=== PATIENT | male | born 1980 | race Caucasian/White ===

== ENCOUNTER 2025-08-09 07:39 | Emergency (ER) | payer OTHER, SELFPAY ==
[2025-08-09 07:42] VITALS: BP 119/95
[2025-08-09 07:52] VITALS: BP 136/91
[2025-08-09 08:00] VITALS: BP 134/95
--- NOTE | 2025-08-09 08:07 | ED.GENMED ---
History of Present Illness
General
Chief Complaint: Breathing Problem
Source: patient
Exam Limitations: none
Time Seen by Provider: 08/09/25 07:53
History of Present Illness
History of Present Illness:
44yoM with no significant past medical history presenting for evaluation of shortness of breath. He reports dyspnea primarily at nighttime/laying flat and with activity for the past month. He woke up in the middle of the night last night due to
his symptoms. told him 2 days ago that it sounded like his lungs were 'drowning in fluid.' He endorses a dry cough. He saw his PCP 3 weeks ago who started him on prednisone and amoxicillin which he finished without any improvement. No
fevers, leg swelling, calf pain, recent travel. No tobacco use.
Past History
Past History
ED Past Medical History: None
ED Past Surgical History: None
Social History
Tobacco: Smoker
Alcohol: None
Drug: None
Personal:
Living: with family
Employment: Employed
Phy Exam
General Physical Exam
General Presentation: well appearing and no apparent distress
General Skin: warm and dry
General Habitus: normal
General Mental: alert
ENT Exam
ENT Exam: normocephalic
Cardiovascular Exam
Cardiovascular Exam: regular rate/rhythm, no edema, no murmur and normal peripheral pulses (2+ DP pulses bilaterally)
Pulmonary Exam
Pulmonary Exam: no respiratory distress, no rales, no crackles, no rhonchi and other (Inspiratory wheeze noted in R lung base. No rales or rhonchi. Speaking in full sentences without difficulty. )
Neurological Exam
Neurological Exam: alert
Gurpreet Coma Scale
Eye Opening: Spontaneous
Verbal Response: Oriented
Motor Response: Obeys Commands
GCS Total Score: 15
Skin Exam
Skin Exam: normal color and warm/dry
Psychiatric Exam
Psychiatric Exam: normal mood/affect
Scores
Heart Failure Risk
Heart Failure Risk Score: Not Applicable
Course
Orders/Labs/Results
Orders:
Orders
08/09/25 08:00
Cardiac Monitoring- Treatment ONCE
08/09/25 08:01
Electrocardiogram (*1) Urgent
Reason for Study: Shortness of Breath
EKG- Treatment ONCE
Ipratropium/Albuterol Sulfate [Duoneb] 3 ml INH R NOW STA
CR Chest - 2 Views Urgent
Comment:
Reason For Exam: SOB
08/09/25 08:31
Complete Blood Count/With Diff Urgent
Comprehensive Metabolic Panel Urgent
D-Dimer Urgent
NT-proBNP Urgent
Troponin I Urgent
Abnormal Lab Results
08/09/25
08:31
WBC 13.0 H 10^3/uL
(4.8-10.8)
MCH 31.5 H pg
(27.0-31.0)
Abs Immat Gran (auto) 0.1 H 10^3/uL
(0-0.05)
Absolute Neuts (auto) 10.2 H 10^3/uL
(1.4-6.5)
Absolute Monos (auto) 0.9 H 10^3/uL
(0.1-0.6)
Neutrophils % 78.7 H %
(42.2-75.2)
Lymphocytes % 11.7 L %
(20.5-51.1)
Glucose 102 H mg/dl
(70-99)
08/09/25 08:31
08/09/25 08:31
Vital Signs
Initial and Last Documented VS:
Initial Vital Signs
Temp Pulse Resp BP Pulse Ox
97.7 F 104 18 119/95 97
08/09/25 07:42 08/09/25 07:42 08/09/25 07:42 08/09/25 07:42 08/09/25 07:42
Last Documented Vital Signs
Temp Pulse Resp BP Pulse Ox
97.7 F 84 18 114/86 98
08/09/25 07:42 08/09/25 09:49 08/09/25 09:49 08/09/25 09:49 08/09/25 09:49
MDM/Problems Addressed
Differential Diagnosis Includes:
44yoM here with SOB x 1 month. Worse at nighttime and with activity. Finished course of prednisone/amoxil without improvement. HR 104 in triage. Remainder of vitals are stable. Patient is well appearing in no distress. Scant wheezes noted on lung
exam. No peripheral edema or rales. Differential diagnosis includes but is not limited to: bronchitis, bronchospasm, FIONA, symptomatic anemia, pneumonia, CHF, consider PE
Initial ED plan: Check cardiac labs, D-dimer, EKG, and CXR. Trial DuoNeb and reassess.
*Pulse Oximetry
SaO2: 97
Oxygen Mode of Delivery: Room air
Patient hypoxic: no
*EKG
Interpreted by ED Provider?: Yes
EKG Intrepretation Date: 08/09/25
Heart Rate: 81
Rate: normal
Rhythm: sinus
[place]: normal axis
Interval: normal interval
QRS Pattern: normal QRS
Ischemia: no ischemia
*Critical Care Note
Total Time (30-74mins, 75-104mins- exclusive of procedures): Not Applicable
Update Note
Update Note:
Labs reveal a white count of 13 which is nonspecific. Remainder of labs are unremarkable. Both troponin and BNP are normal. D-dimer normal making PE very unlikely. Chest x-ray clear without infiltrates, pulmonary edema, or cardiomegaly. Lung
sounds clear on reassessment. No episodes of hypoxia throughout ED stay. Unclear etiology of symptoms. He did have wheezing on arrival so will provide a prescription for an albuterol inhaler. He just finished a course of prednisone less than a
week ago so will defer further steroids. Discussed need for outpatient follow-up with his PCP as well as further outpatient workup including possible sleep study or stress test. Patient in agreement with plan and he was discharged in stable
condition.
ED Attending Note
-
Portions of this chart may have been created with voice recognition software.� Occasional wrong word or��sound alike� substitutions may have occurred due to the inherent limitations of voice recognition software.
Discharge Plan
Departure
Patient Disposition: Home (Routine Discharge)
Date of Disposition: 08/09/25
Time of Disposition: :23
Patient with high blood pressure during this ER visit?: No
Discharge Problem:
Shortness of breath
Instructions: Shortness of Breath (Dyspnea) (DC)
Prescriptions:
New
albuterol sulfate [Ventolin HFA] 90 mcg/actuation HFA aerosol inhaler
2 puff inhalation Q6H PRN (Reason: shortness of breath or wheezing) Qty: 8.5 0RF
Referrals:
Damian Miller DO [Family Provider, Family Practice]
Activity Restrictions/Additional Instructions:
Use inhaler as needed for wheezing/shortness of breath.
Please call your family doctor today to schedule a follow-up appointment next week. Return to the ER with any new or worsening symptoms.
Interventions
Interventions:
*Risk Screen - Suicide Last Done: 08/09/25 07:42
*General Assessment Last Done: 08/09/25 07:42
*Neglect/Abuse Screening Last Done: 08/09/25 07:42
*ED- Fall Risk Assessment Last Done: 08/09/25 07:42
*ED COVID-19 Vaccine History Last Done: 08/09/25 07:42
*ED Influenza Vaccine History Last Done: 08/09/25 07:42
*Nursing Disposition Last Done: 08/09/25 09:49
ED- Cardiac Assessment Last Done: 08/09/25 08:20
ED- Pulmonary Assessment Last Done: 08/09/25 08:20
Discharge Date and Time
Discharge Date/Time: 08/09/25 09:45
Print Language: [place]
[2025-08-09 08:18] VITALS: BP 123/81
[2025-08-09 08:20] VITALS: BMI 22.0
--- NOTE | 2025-08-09 08:25 | EDRN ---
Received patient on stretcher with c/o TY and SOB when he lays down. Denies c/o chest pain. Patient stated that he was seen by his PCP and was being treated for respiratory infection.
[2025-08-09] MEDS: DUONEB 3 ML INH (08:35)
[2025-08-09 08:43] LABS: Hematocrit 47.7 % (39.0-52.0); Hemoglobin 16.1 g/dL (13.0-18.0); Mean Corp Hgb Conc. 33.8 g/dL (33.0-37.0); Mean Corpuscular Volume 93.3 fL (80.0-94.0); Nucleated Red Blood Cells % 0 % (-); Platelet Count 277 10^3/uL (130-400); Red Cell Dist. Width 12.1 % (11.5-14.5)
[2025-08-09 08:54] LABS: D-Dimer 0.29 ug/mlFEU (0.00-0.50)
[2025-08-09 08:58] LABS: ALT (SGPT) 39 U/L (0-50); AST (SGOT) 30 U/L (17-59); Albumin 4.9 g/dl (3.5-5.0); Alkaline Phosphatase 63 U/L (38-126); Blood Urea Nitrogen 16 mg/dl (9-20); Calcium 9.8 mg/dl (8.4-10.2); Carbon Dioxide 29 mmol/L (22-30); Chloride 103 mmol/L (98-107); Estimated Creatinine Clearance 101 ml/min; Glucose 102 mg/dl (70-99); Potassium 4.6 mmol/L (3.5-5.1); Sodium 136 mmol/L (135-145); Total Protein 7.8 g/dl (6.3-8.2); eGFR > 60.00
[2025-08-09 09:00] VITALS: BP 104/43
[2025-08-09 09:05] LABS: Troponin I < 0.012 ng/ml
--- NOTE | 2025-08-09 09:48 | EDRN ---
Reviewed discharge instructions with patient. Verbalized understanding. Ambulated with steady gait to the lobby.
[2025-08-09 09:49] VITALS: BP 114/86
== END 2025-08-09 09:45 | disposition home or self-care (01) ==
LOC: EMR 07:39
PROVIDERS: Physician Assistant; EMERGENCY PHYSICIAN Emergency Medicine; FAMILY PHYSICIAN Family Medicine
DX: R06.02 Shortness of breath (principal); F17.200 Nicotine dependence, unspecified, uncomplicated
CPT/HCPCS: 99284; 94640; 71046; 80053; 83880; 84484; 85025; 85379; 93005